=== PATIENT | female | born 1985 | race Hispanic/Latino ===

== ENCOUNTER 2018-10-22 09:16 | Emergency (ER) | payer OTHER ==
[2018-10-22 10:35] LABS: APPEARANCE,URINE Clear (CLEAR); BILIRUBIN,URINE Negative (NEGATIVE); COLOR,URINE Yellow (YELLOW); GLUCOSE, URINE (UA) Negative (NEGATIVE); KETONES,URINE Negative (NEGATIVE); LEUKOCYTE ESTERASE ,URINE Negative (NEGATIVE); NITRATE,URINE Negative (NEGATIVE); OCCULT BLOOD,URINE Negative (NEGATIVE); PH,URINE 7.5 (5.0-8.0); PROTEIN,URINE Negative (NEGATIVE)
[2018-10-22] MEDS ORDERED: ACETAMINOPHEN EXTRA STRENGTH 500 MG TABLET ONE (10:37)
[2018-10-22 10:39] LABS: HCG,QUAL RESULT NEGATIVE (NEGATIVE)
[2018-10-22 10:53] LABS: BASOPHILS % (AUTO) 0.7 % (0.0-5.0); EOSINOPHILS % (AUTO) 1.3 % (0.0-8.0); HEMATOCRIT 41.4 % (36-48); LYMPHOCYTES % (AUTO) 44.7 % (21.0-51.0); MEAN CORPUSCULAR HGB CONC 33.7 g/dL (32.0-36.0); MEAN CORPUSCULAR VOLUME 89.1 fL (79-99); MONOCYTES % (AUTO) 5.4 % (3.0-13.0); NEUTROPHILS % (AUTO) 47.9 % (40.0-77.0); NUCLEATED RED BLOOD CELLS 0.1 % (0.0-0.19); PLATELET COUNT (AUTO) 389 K/uL (130-400); RED BLOOD CELL COUNT(AUTO) 4.65 MIL/uL (4.00-5.50); RED CELL DISTRIBUTION WIDTH 13.1 % (11.0-15.5); WHITE BLOOD COUNT (AUTO) 8.3 K/uL (4.8-10.8)
[2018-10-22 11:03] LABS: CREATININE 0.7 mg/dL (0.5-1.5)
[2018-10-22 11:08] LABS: ALBUMIN 3.5 g/dL (3.5-5.0); BILIRUBIN,TOTAL 0.5 mg/dL (0.2-1.0); TOTAL PROTEIN, SERUM 7.6 g/dL (6.0-8.3)
[2018-10-22] MEDS ORDERED: KETOROLAC TROMETHAMINE 15MG/ML ONE (12:09)
== END 2018-10-22 14:25 | disposition home or self-care (01) ==
LOC: EDH 09:16
DX: G43.109 Migraine with aura, not intractable, without status migrainosus (principal); Z98.51 Tubal ligation status
CPT/HCPCS: 36415; 70450; 80053; 81003; 81025; 85025; 96361; 96374; 99284; J1885; 93005

== ENCOUNTER 2019-04-11 21:10 | Emergency (ER) | payer SELFPAY ==
[2019-04-11] MEDS ORDERED: SODIUM CHLORIDE 0.9% 50 ML IV ONE (22:11)
[2019-04-11] MEDS ORDERED: SODIUM CHLORIDE 0.9% 1000ML 1,000 ML IV ONE (22:11)
[2019-04-11] MEDS ORDERED: CEFTRIAXONE SODIUM 1 GM ONE (22:12)
[2019-04-11] MEDS ORDERED: KETOROLAC TROMETHAMINE 30MG/ML ONE (22:12)
[2019-04-11] MEDS ORDERED: DEXAMETHASONE SOD PHOSPHATE 10MG/ML 1ML VIAL ONE (22:12)
[2019-04-11 22:27] LABS: BASOPHILS % (AUTO) 0.3 % (0.0-5.0); EOSINOPHILS % (AUTO) 0.1 % (0.0-8.0); HEMATOCRIT 40.6 % (36-48); LYMPHOCYTES % (AUTO) 9.1 % (21.0-51.0); MEAN CORPUSCULAR HEMOGLOBIN 30.7 pg (27.0-33.0); MEAN CORPUSCULAR HGB CONC 34.5 g/dL (32.0-36.0); NEUTROPHILS % (AUTO) 87.5 % (40.0-77.0); PLATELET COUNT (AUTO) 275 K/uL (130-400); RED BLOOD CELL COUNT(AUTO) 4.57 MIL/uL (4.00-5.50); RED CELL DISTRIBUTION WIDTH 13.3 % (11.0-15.5); WHITE BLOOD COUNT (AUTO) 15.8 K/uL (4.8-10.8)
[2019-04-11 22:38] LABS: CREATININE 0.9 mg/dL (0.5-1.5); POTASSIUM 3.4 mmol/L (3.5-5.1)
[2019-04-11 22:42] LABS: ALBUMIN 3.8 g/dL (3.5-5.0); BILIRUBIN,TOTAL 0.8 mg/dL (0.2-1.0); TOTAL PROTEIN, SERUM 8.1 g/dL (6.0-8.3)
== END 2019-04-12 00:19 | disposition home or self-care (01) ==
LOC: EDH 21:10
DX: B34.9 Viral infection, unspecified (principal)
CPT/HCPCS: 36415; 80053; 85025; 87804 ×2; 96374; 96375; 99284; J0696; J1100; J1885; J7030

== ENCOUNTER 2022-10-12 17:11 | Emergency (ER) | payer OTHER ==
[~2022-10-12] VITALS: Ht 160 cm; Wt 99.8 kg
[2022-10-12] MEDS ORDERED: MORPHINE 4 MG SYG IVP ONE (18:00)
[2022-10-12] MEDS ORDERED: 0.9%NACL 1000ML 1,000 ML IV ONE (18:00)
[2022-10-12 18:34] LABS: BASOPHILS % (AUTO) 0.1 % (0.0-5.0); EOSINOPHILS % (AUTO) 0.6 % (0.0-8.0); LYMPHOCYTES % (AUTO) 9.2 % (21.0-51.0); MEAN CORPUSCULAR HEMOGLOBIN 29.9 pg (27.0-33.0); MEAN CORPUSCULAR HGB CONC 34.5 g/dL (32.0-36.0); MEAN CORPUSCULAR VOLUME 86.6 fL (79-99); NEUTROPHILS % (AUTO) 86.7 % (40.0-77.0); PLATELET COUNT (AUTO) 356 K/uL (130-400); RED BLOOD CELL COUNT(AUTO) 5.08 MIL/uL (4.00-5.50); RED CELL DISTRIBUTION WIDTH 12.9 % (11.0-15.5); WHITE BLOOD COUNT (AUTO) 14.3 K/uL (4.8-10.8)
[2022-10-12 18:44] LABS: CREATININE 0.8 mg/dL (0.5-1.5)
[2022-10-12] MEDS ORDERED: ONDANSETRON 4MG INJ ONE (18:46)
[2022-10-12 18:48] LABS: ALBUMIN 3.8 g/dL (3.5-5.0)
[2022-10-12 19:11] LABS: APPEARANCE,URINE CLOUDY (CLEAR); BILIRUBIN,URINE NEGATIVE (NEGATIVE); COLOR,URINE YELLOW (YELLOW); GLUCOSE, URINE (UA) NEGATIVE (NEGATIVE); KETONES,URINE NEGATIVE (NEGATIVE); LEUKOCYTE ESTERASE ,URINE NEGATIVE Leu/uL (NEGATIVE); NITRATE,URINE NEGATIVE (NEGATIVE); OCCULT BLOOD,URINE LARGE (NEGATIVE); PH,URINE 5.5 (5.0-8.0); PROTEIN,URINE 20 mg/dL (NEGATIVE); UROBILINOGEN,URINE 0.2 mg/dL (0.2-1.0)
[2022-10-12 19:25] LABS: BACTERIA,URINE RARE /HPF (None Seen); MUCUS,URINE RARE LPF (None Seen); SQUAMOUS EPITHELIAL CELL,UR FEW /HPF (0-2); YEAST,URINE BUDDING RARE /HPF (None Seen)
[2022-10-12] MEDS ORDERED: ONDA4TAB10 PO (21:17)
[2022-10-12] MEDS ORDERED: FAMO20TA8 PO (21:17)
[2022-10-12] MEDS ORDERED: METOCLOPRAMIDE 10 MG/2 ML VIAL IVP ONE (21:30)
[2022-10-12] MEDS ORDERED: DiphenhydrAMINE HCL 50 MG/ML VIAL IV ONE (21:30)
[2022-10-12 22:01] VITALS: BP 128/84
== END 2022-10-12 22:05 | disposition home or self-care (01) ==
LOC: EDH 17:11
DX: K80.20 Calculus of gallbladder without cholecystitis without obstruction (principal); D72.829 Elevated white blood cell count, unspecified; R11.2 Nausea with vomiting, unspecified; E11.9 Type 2 diabetes mellitus without complications; Z98.890 Other specified postprocedural states
CPT/HCPCS: 99285; 74176; 96374; 76705; 96361; 96375 ×2; 80053; 83690; 85025; 81001; 81025; 36415; J1200; J7030; J2405; J2270; J2765

== ENCOUNTER 2023-01-07 23:05 | Emergency (ER) | payer SELFPAY ==
[~2023-01-07] VITALS: Ht 160 cm; Wt 93.9 kg
[~2023-01-07 23:05] MED LIST: FAMO20TA8 PO; ONDA4TAB10 PO
[2023-01-07 23:07] VITALS: BP 112/74
[2023-01-08] MEDS ORDERED: FAMOTIDINE 20MG VIAL IV ONE (01:30)
[2023-01-08] MEDS ORDERED: MORPHINE 2 MG SYG IVP ONE (01:30)
[2023-01-08] MEDS ORDERED: 0.9%NACL 1000ML 1,000 ML IV ONE (01:30)
[2023-01-08] MEDS ORDERED: ONDANSETRON 4MG INJ IVP ONE (01:30)
[2023-01-08 02:56] LABS: BASOPHILS % (AUTO) 0.2 % (0.0-5.0); EOSINOPHILS % (AUTO) 0.8 % (0.0-8.0); HEMATOCRIT 44.3 % (36-48); LYMPHOCYTES % (AUTO) 23.3 % (21.0-51.0); MEAN CORPUSCULAR HGB CONC 33.6 g/dL (32.0-36.0); MEAN CORPUSCULAR VOLUME 86.2 fL (79-99); MONOCYTES % (AUTO) 7.3 % (3.0-13.0); NEUTROPHILS % (AUTO) 67.8 % (40.0-77.0); PLATELET COUNT (AUTO) 379 K/uL (130-400); RED BLOOD CELL COUNT(AUTO) 5.14 MIL/uL (4.00-5.50); RED CELL DISTRIBUTION WIDTH 12.9 % (11.0-15.5); WHITE BLOOD COUNT (AUTO) 8.3 K/uL (4.8-10.8)
[2023-01-08 03:09] LABS: CARBON DIOXIDE 25 mmol/L (21-32); CHLORIDE 101 mmol/L (101-111); GLOMERULAR FILTR. RATE CALC 75 mL/min (>90); GLUCOSE,RANDOM 111 mg/dL (70-105); POTASSIUM 3.9 mmol/L (3.5-5.1); SODIUM SERUM 135 mmol/L (136-145); UREA NITROGEN, BLOOD 17 mg/dL (7-18)
[2023-01-08 03:19] LABS: ALANINE AMINOTRANSFERASE 63 U/L (12-78); ALBUMIN 3.6 g/dL (3.5-5.0); ASPARTATE AMINOTRANSFERASE 34 U/L (10-37); HCG,QUANTITATIVE 1 mIU/mL (0-5); TOTAL PROTEIN, SERUM 8.6 g/dL (6.0-8.3)
[2023-01-08 03:25] LABS: LIPASE < 50 U/L (114-286)
== END 2023-01-08 03:58 | disposition home or self-care (01) ==
LOC: EDH 23:05
DX: N21.0 Calculus in bladder (principal); K80.50 Calculus of bile duct without cholangitis or cholecystitis without obstruction; Z79.899 Other long term (current) drug therapy; Z98.890 Other specified postprocedural states
CPT/HCPCS: 99285; 96374; 96375; 80053; 84702; 83690; 85025; 36415; 76705; J3490; J2270; J2405

== ENCOUNTER 2023-07-03 09:31 | Emergency (ER) | payer BC ==
[~2023-07-03] VITALS: Ht 160 cm; Wt 99.8 kg
[2023-07-03 10:00] LABS: RAPID GROUP A STREP negative (NEGATIVE)
[2023-07-03 10:03] LABS: SARS-CoV-2, RNA, NAAT NEGATIVE SARS CoV-2 (NEGATIVE)
[2023-07-03 10:18] LABS: INFLUENZA TYPE A Negative For Type A (NEGATIVE); INFLUENZA TYPE B Negative For Type B (NEGATIVE)
[2023-07-03] MEDS ORDERED: KETOROLAC 30MG VIAL (30MG/ML) IM ONE (10:30)
[2023-07-03] MEDS ORDERED: GUAIFENESIN/DEXTROMETHORPHAN 1 EACH TAB.SR.12H PO ONE (11:00)
[2023-07-03 12:00] VITALS: BP 112/76; PULSE 88; RESP 18; O2SAT 97
[2023-07-03] MEDS ORDERED: BROM118S48 PO (12:01)
[2023-07-03] MEDS ORDERED: FLUT16H NASAL (12:01)
[2023-07-03] MEDS ORDERED: AZIT250T PO (12:02)
== END 2023-07-03 12:24 | disposition home or self-care (01) ==
LOC: EDH 09:31
DX: J02.9 Acute pharyngitis, unspecified (principal); J06.9 Acute upper respiratory infection, unspecified; R05.9 Cough, unspecified; R09.81 Nasal congestion; M79.10 Myalgia, unspecified site; Z90.49 Acquired absence of other specified parts of digestive tract; Z20.822 Contact with and (suspected) exposure to COVID-19
CPT/HCPCS: 99284; 71045; 87635; 87880; 87804 ×2; 96372; C9803; J1885

== ENCOUNTER 2024-04-14 16:48 | Emergency (ER) | payer SELFPAY ==
[~2024-04-14] VITALS: Ht 160 cm; Wt 102.1 kg
[~2024-04-14 16:48] MED LIST changes: +AZIT250T PO; +BROM118S48 PO; +FLUT16H NASAL; +ONDA-243 PO; -ONDA4TAB10 PO
[2024-04-14] MEDS: Solu-medROL 125MG VIAL IVP ONE (17:35)
[2024-04-14] MEDS: 0.9%NACL 1000ML 1,000 ML IV ONE (17:35)
[2024-04-14] MEDS: mecliZINE HCL 25 MG TABLET PO ONE (17:35)
[2024-04-14 17:51] VITALS: BP 136/91; PULSE 65; RESP 16; TEMP 98.3; O2SAT 98
[2024-04-14 19:53] LABS: BASOPHILS # (AUTO) 0.04 K/uL (0.00-0.20); BASOPHILS % (AUTO) 0.4 % (0.0-5.0); EOSINOPHILS # (AUTO) 0.11 K/uL (0.00-0.70); EOSINOPHILS % (AUTO) 1.1 % (0.0-8.0); HEMATOCRIT 40.5 % (36-48); IMMATURE GRANULOCYTE ABSOLUTE 0.05 K/uL (0-1); LYMPHOCYTES # (AUTO) 2.3 K/uL (1.0-4.8); LYMPHOCYTES % (AUTO) 22.3 % (21.0-51.0); MEAN CORPUSCULAR HEMOGLOBIN 29.7 pg (27.0-33.0); MEAN CORPUSCULAR HGB CONC 33.8 g/dL (32.0-36.0); MEAN CORPUSCULAR VOLUME 87.9 fL (79-99); MONOCYTES # (AUTO) 0.3 K/uL (0.1-1.0); NEUTROPHILS # (AUTO) 7.4 K/uL (1.8-7.7); NEUTROPHILS % (AUTO) 72.7 % (40.0-77.0); PLATELET COUNT (AUTO) 358 K/uL (130-400); RED BLOOD CELL COUNT(AUTO) 4.61 MIL/uL (4.00-5.50); RED CELL DISTRIBUTION WIDTH 12.9 % (11.0-15.5); WHITE BLOOD COUNT (AUTO) 10.1 K/uL (4.8-10.8)
[2024-04-14 20:06] LABS: CREATININE 0.7 mg/dL (0.5-1.0); POTASSIUM 3.8 mmol/L (3.5-5.1)
[2024-04-14] MEDS ORDERED: MECL-302 PO (20:59)
[2024-04-14] MEDS ORDERED: METH4TAB3 PO (20:59)
== END 2024-04-14 21:11 | disposition home or self-care (01) ==
LOC: EDH 16:48
DX: H81.10 Benign paroxysmal vertigo, unspecified ear (principal); H83.09 Labyrinthitis, unspecified ear; R73.9 Hyperglycemia, unspecified; Z79.899 Other long term (current) drug therapy; Z90.49 Acquired absence of other specified parts of digestive tract; Z98.890 Other specified postprocedural states
CPT/HCPCS: 99285; 96374; 71045; 80048; 85025; 36415; 93005; J7030; J2919